=== PATIENT | female | born 1965 | race Caucasian/White ===

== ENCOUNTER → 2017-08-08 15:23 | Outpatient (CLI) | payer BC ==
[~2017-08-08 15:23] MED LIST: NORTRIPTYLINE H50 MG PO
[2017-08-08 16:24] LABS: APPEARANCE CLEAR (CLEAR); BILIRUBIN NEGATIVE (NEGATIVE); COLOR YELLOW (YELLOW); GLUCOSE NEGATIVE (NEGATIVE); KETONE NEGATIVE (NEGATIVE); NITRITE NEGATIVE (NEGATIVE); PROTEIN NEGATIVE (NEGATIVE); UROBILINOGEN NORMAL (NORMAL)
[2017-08-28 11:50] VITALS: BMI 25.8
== END | disposition home or self-care (01) ==
LOC: D.LAB 15:23
PROVIDERS: Nurse Practitioner Family
DX: N39.0 Urinary tract infection, site not specified (principal)

== ENCOUNTER 2017-08-28 10:15 | Outpatient (CLI) | payer MEDICAID ==
[~2017-08-28] VITALS: Ht 167.6 cm; Wt 72.6 kg
--- NOTE | ~2017-08-28 | HEMODYNAMI ---
PATIENT:RIYA BONE MEDICAL RECORD: [id number] : 67 LOCATION:DMAGED ADMISSION DATE: 08/28/17 Generatedon:08/28/201715:25 Patient name: RIYA BONE Patient #: [id number] SSN: : Date of study: 08/28/2017 Page: Of Hemodynamic Procedure Report Patient Data Patient Demographics Procedure consent was obtained First Name: RIYA Gender: Female Last Name: LIZANDRO : 1965 [facility] Initial: VANDANA Age: 52 year(s) Patient #: [id number] Race: Unknown Additional ID: [id number] Contact details Address: [address] [place] [address] State: [place] City: [place] Zip code: [address] Admission Admission Data Admission Date: 08/28/2017 Admission Time: 10:15 Procedure Procedure Types Cath Procedure Peripheral Cath Diagnostic Procedure Kyphoplasty Procedure Description Procedure Date Procedure Date: 08/28/2017 Procedure Start Time: 13:27 Procedure Staff Name Function Gli Hernandez MD Performing Physician Deena Menendez RT Monitor Shira Jimenez RN Nurse Sherif Mcgee RT Scrub Trevor Melara MD Additional personnel Kristi Agustin CRNA Additional personnel Procedure Data Cath Procedure Fluoroscopy Diagnostic fluoroscopy Total fluoroscopy Time: 0 time: 0 min min Diagnostic fluoroscopy Total fluoroscopy dose: 485 dose: 485 mGy mGy Procedure Medications Medication Administration Route Dosage Heparin Flush Bag added to field 2 bags (1000units/500ml NS) Lidocaine 1% added to field 20 Hemodynamics Rest Heart Rate: 72 (bpm) Snapshots Pre Cath Intra NCS Post Cath Vital Signs Time Heart Resp SPO2 etCO2 NIBP (mmHg) Rhythm Pain Sedation Rate (ipm) (%) (mmHg) Status Level (bpm) 13:13:24 69 20 0 151/69(95) NSR 0 (11) 10(A) , No pain 13:17:46 72 13 99 36.9 128/69(86) NSR 0 (11) 10(A) , No pain 13:22:12 72 13 97 42.9 127/54(82) NSR 0 (11) 10(A) , No pain 13:26:26 72 11 97 48.2 120/64(87) NSR 0 (11) 10(A) , No pain 13:30:46 76 13 97 41.4 134/61(95) NSR 0 (11) 10(A) , No pain 13:35:04 70 10 97 41.4 128/61(84) NSR 0 (11) 10(A) , No pain 13:39:22 68 12 98 38.4 130/61(83) NSR 0 (11) 10(A) , No pain 13:43:42 66 14 97 29.4 114/52(73) NSR 0 (11) 10(A) , No pain 13:48:03 68 12 98 46.7 125/55(87) NSR 0 (11) 10(A) , No pain 13:52:23 67 12 97 45.9 123/62(81) NSR 0 (11) 10(A) , No pain 13:56:43 66 13 97 45.2 130/63(85) NSR 0 (11) 10(A) , No pain 14:01:05 64 12 97 42.1 113/59(80) NSR 0 (11) 10(A) , No pain 14:05:19 65 12 97 38.4 115/55(83) NSR 0 (11) 10(A) , No pain 14:09:37 65 12 97 41.4 118/56(81) NSR 0 (11) 10(A) , No pain 14:14:01 63 13 96 35.4 131/51(91) NSR 0 (11) 10(A) , No pain 14:18:38 63 12 100 44.4 109/28(44) NSR 0 (11) 10(A) , No pain 14:23:37 62 13 100 35.4 Measuring NSR 0 (11) 10(A) , No pain 14:24:03 62 5 100 35.4 109/40(77) NSR 0 (11) 10(A) , No pain 14:28:23 59 13 100 34.6 91/53(75) NSR 0 (11) 10(A) , No pain 14:32:39 58 12 100 35.4 111/41(74) NSR 0 (11) 10(A) , No pain 14:37:02 57 11 100 34.6 112/43(73) NSR 0 (11) 10(A) , No pain 14:41:20 57 12 100 30.1 120/58(89) NSR 0 (11) 10(A) , No pain 14:45:38 56 13 100 29.3 124/64(85) NSR 0 (11) 10(A) , No pain 14:49:58 57 12 100 31.6 122/61(87) NSR 0 (11) 10(A) , No pain 14:54:16 60 13 100 32.4 128/68(87) NSR 0 (11) 10(A) , No pain 14:58:38 60 15 100 33.1 137/61(96) NSR 0 (11) 10(A) , No pain 15:03:00 70 13 100 28.6 141/78(100) NSR 0 (11) 10(A) , No pain 15:07:17 61 14 100 36.8 147/83(110) NSR 0 (11) 10(A) , No pain 15:11:45 57 14 100 35.3 155/72(108) NSR 0 (11) 10(A) , No pain 15:16:05 55 12 100 142/71(104) NSR 0 (11) 10(A) , No pain 15:20:31 54 13 100 148/67(102) NSR 0 (11) 10(A) , No pain Medications Time Medication Route Dose Verified Delivered Reason Notes Effec tiveness by by 13:30:08 Heparin Flush added 2 Gil Cordero used for Bag to bags David Hernandez MD procedure (1000units/500ml field MAN NS) 13:30:21 Lidocaine 1% added 20ml Gil Cordero used for to vial David Hernandez MD procedure field MAN Procedure Log Time Note 13:00:23 Gil Hernandez MD sent for patient. Start room use. 13:00:33 Time tracking: Regular hours (M-F 7:00 - 5:00) 13:00:38 Plan of Care:Hemodynamics will remain stable., Cardiac rhythm will remain stable., Comfort level will be maintained., Respiratory function will remain adequate., Patient/ family verbilizes understanding of procedure., Procedure tolerated without complication., Recovers from procedure without complications.. 13:00:46 Patient received from Outpatients to IR Alert and oriented. Tansferred to table in Prone position. 13:00:48 Warm blankets applied, and sandee hugger turned on for patient comfort. 13:00:49 Correct patient and procedure confirmed by team. 13:00:50 Signed procedure consent form obtained from patient. 13:00:54 Full Disclosure recording started 13:00:55 - 13:00:58 H&P Date Dictated: 08/28/2017 H&P Addendum completed by physician on day of procedure. (MUST COMPLETE FOR ALL OUTPATIENTS). 13:00:58 Pre-procedure instructions explained to patient. 13:00:59 Pre-op teaching completed and patient verbalized understanding. 13:01:00 Family in waiting room. 13:01:10 Patient NPO since Midnight. 13:01:15 - 13:01:31 SEE ANESSTHESIA NOTE FOR PRE PROCEDURE TIVA 13:01:59 Kristi Agustin CRNA present and monitoring patient for TIVA. 13:02:22 Lumbar area was prepped with dura-prep and draped in sterile fashion 13:02:29 Thoracic area was prepped with dura-prep and draped in sterile fashion 13:02:36 Use device set IR Diagnostic 13:02:37 Sterile Angiographic Pack opened to sterile field. 13:02:38 Bag Decanter (2002S) opened to sterile field. 13:02:39 Tegaderm 4 x 4 ([id number]) opened to sterile field. 13:12:01 Vital chart was started 13:23:47 LILIAN AUTOPLEX MIXER W/VHV opened to sterile field. 13:24:07 Baseline sample Acquired. 13:24:17 Physician arrived 13:24:25 --------ALL STOP TIME OUT------ 13:24:27 Final Timeout: patient, procedure, and site verified with staff and physician. All members of the team are in agreement. 13:24:44 Lumbar site verified by team. 13:25:03 Thoracic site verified by team. 13:27:40 Procedure started. 13:27:51 Local anesthetic to Lumbar area with Lidocaine 1% by Gil Hernandez MD.INITIAL ACCESS ONLY 13:27:59 Local anesthetic to Thoracic area with Lidocaine 1% by Gil Hernandez MD.ADDITIONAL ACCESS 13:30:08 Heparin Flush Bag (1000units/500ml NS) 2 bags added to field was administered by Gil Hernandez MD; used for procedure; 13:30:21 Lidocaine 1% 20ml vial added to field was administered by Gil Hernandez MD; used for procedure; 15:10:07 Procedure ended.(Physican Out) 15:16:41 Fluoroscopy time 00.00 minutes. 15:16:50 Fluoroscopy dose: 485 mGy 15:16:50 Flurop Dose total: 485 15:16:53 Sharps counted by scrub and verified by R.N. 15:16:55 Insertion/operative site no bleeding no hematoma. 15:17:04 Post-op/insertion siteLumbar area dressed using a 4 x 4 and Tegaderm. 15:17:17 Post-op/insertion site Thoracic area dressed using a 4 x 4 and Tegaderm . 15:17:38 Post procedure instruction explained to patient.Patient verbalizes understanding. 15:24:03 Procedure and supply charges have been captured, reviewed, submitted an d are correct. 15:24:22 Report given to Outpatients. 15:24:31 Patient transfered to Outpatients with Stretcher. 15:25:04 Vital chart was stopped Device Usage Item Name Manufacture Quantity Catalog Hospital Part Current Minim al Lot# / Number Charge Number Stock Stock Serial# Code Sterile Cardinal 1 [id number] 5 Angiographic Health Pack Bag Decanter Micro[employer] 1 [id number] 5 (2002S) [employer] Tegaderm 4 x 3M 1 [id number] 4 (1626W) LILIAN Lilian 1 [id number] 5 AUTOPLEX MIXER W/VHV Signature Audit [place] Stage Time Signature Unsigned Intra-Procedure 08/28/2017 Sherif 3:25:01 PM [place] RT (R) (CV) Signatures Monitor : Deena Menendez RT Signature : Date : Time : [id number] [place] [address]
[2017-08-28 11:08] LABS: BASOPHILS 0.2 % (0-2); EOSINOPHILS 1.7 % (0-7); HEMOGLOBIN 14.5 g/dL (12-16); IMMATURE GRANULOCYTES 0.2 % (0-5); LYMPHOCYTES 24.8 % (15-50); MCH 30.7 pg (26.0-34.0); MCHC 34.5 g/dL (31.0-37.0); MEAN PLATELET VOLUME 9.7 fL (7.4-10.4); MONOCYTES 4.6 % (2-11); NEUTROPHILS 68.5 % (40-80); PLATELET COUNT 246 10x3/uL (130-400); RBC 4.72 10x6/uL (4.00-5.40); RDW 12.7 % (11.5-14.5); WBC 9.2 10x3/uL (4.8-10.8)
[2017-08-28 11:18] LABS: APTT 26.3 SECONDS (22.8-39.4); INR 0.91 (0.85-1.17); PROTIME 11.9 SECONDS (11.6-15.0)
[2017-08-28] MEDS ORDERED: NORTRIPTYLINE H50 MG PO (11:23)
[2017-08-28 11:28] LABS: CALC OSMOLALITY 280 mosm/kg (275-300); CALCIUM 9.5 mg/dL (8.5-10.1); CARBON DIOXIDE 30.3 mmol/L (21.0-32.0); CHLORIDE - SERUM 101 mmol/L (98-107); CREATININE - SERUM 0.8 mg/dL (0.6-1.3); GLUCOSE 110 mg/dL (74-106); POTASSIUM - SERUM 4.4 mmol/L (3.5-5.1); SODIUM 140 mmol/L (136-145); UREA NITROGEN 16 mg/dL (7-18); eGFR NON AFRICAN AMERICAN 80 mL/min (90-120)
[2017-08-28 11:50] VITALS: BP 128/75; Ht 167.6 cm; Wt 72.6 kg
== END 2017-08-28 18:20 | disposition home or self-care (01) ==
LOC: D.SP 10:15 → D.RAD 12:00 → D.SP 12:00
PROVIDERS: General Practice
DX: M48.55XA Collapsed vertebra, not elsewhere classified, thoracolumbar region, initial encounter for fracture (principal); Z01.812 Encounter for preprocedural laboratory examination